=== PATIENT | male | born 2000 | race Hispanic/Latino ===

== ENCOUNTER 2018-10-01 14:09 | Inpatient (IN) | payer BC ==
[2018-10-01 14:42] LABS: #Basophils 0.1 thou/uL (0.0-0.2); #Eosinphils 0.1 thou/uL (0.0-0.7); #Lymphocytes 2.5 thou/uL (1.20-3.40); #Monocytes 1.3 thou/uL (0.11-0.59); #Neutrophils 15.3 thou/uL (1.40-6.50); %Basophils 0.3 % (0.0-1.0); %Eosinophils 0.4 % (0.0-10.0); %Lymphocytes 13.1 % (28.0-48.0); %Monocytes 6.6 % (0.0-4.0); %Neutrophils 79.7 % (31.0-61.0); Hemoglobin 15.9 g/dL (14.0-18.0); Mean Corpuscular HGB CONC 33.5 g/dL (32.0-36.0); Mean Corpuscular Hemoglobin 31.2 pg (25.0-35.0); Mean Corpuscular Volume 93.2 fL (78.0-98.0); Mean Platelet Volume 7.5 fL (7.4-10.4); Platelet Count 305 thou/uL (130-400); RBC Distribution Width 12.2 % (11.5-14.5); White Blood Cell (WBC) Count 19.2 thou/uL (4.8-10.8)
[2018-10-01 15:06] LABS: ALT (SGPT) 25 U/L (8-55); AST (SGOT) 26 U/L (5-34); Albumin 4.9 g/dL (3.5-5.0); Alkaline Phosphatase 101 U/L (Less than 750); Anion Gap 12 mmol/L (10-20); BUN (Urea Nitrogen) 12 mg/dL (8.9-20.6); Bilirubin, Total 0.9 mg/dL (0.2-1.2); Calc. Creatinine Clearance 0 mL/min (70-130); Calcium 10.3 mg/dL (7.8-10.44); Carbon Dioxide 30 mmol/L (22-29); Chloride 102 mmol/L (98-107); Estimated GFR-MDRD 80; Globulin 2.9 g/dL (2.4-3.5); Glucose 92 mg/dL (70-105); Lipase 4 U/L (8-78); Protein, Total 7.8 g/dL (6.0-8.3); Sodium 139 mmol/L (136-145)
[2018-10-01] MEDS ORDERED: ISOVUE-370 76%-LOCM 1 ML ONE (15:08)
[2018-10-01] MEDS ORDERED: Iopamidol 370 76% 50 ML VIAL FS ONE (15:08)
--- NOTE | 2018-10-01 16:36 | CT ---
EXAM: Abdomen and pelvic CT scan with contrast: HISTORY: Abdominal pain COMPARISON: None FINDINGS: The visualized lung bases are clear. Liver: Unremarkable. Gallbladder:Unremarkable. Pancreas:Unremarkable Spleen:Unremarkable. Adrenal glands:Unremarkable. Kidneys:No renal calculus or acute obstruction.No solid or cystic mass. No evidence for bowel obstruction. There is an abnormally thickened appendix with periappendiceal fat stranding and thickening of the ce lance apex evidence for acute appendicitis without evidence for drainable abscess or extraluminal gas. There are some minimally enlarged right lower quadrant mesenteric lymph nodes. The urinary bladder is unremarkable. No abscess, adenopathy, or abnormal fluid collection within the abdomen or pelvis. IMPRESSION: Evidence for acute appendicitis. Findings discussed with Dr. Stockton in the emergency room at 4:30 PM CODE CR
[2018-10-01] MEDS ORDERED: Succinylcholine Chloride 20 MG/ML 10 ml SYRINGE FS ONE (17:03)
[2018-10-01] MEDS ORDERED: Lidocaine 1% PF 5 ML VIAL ONE (17:03)
[2018-10-01] MEDS ORDERED: Ondansetron PF 4 MG/2 ML Vial ONE (17:03)
[2018-10-01] MEDS ORDERED: Ketorolac Tromethamine 30 MG/ML VIAL ONE (17:03)
[2018-10-01] MEDS ORDERED: Rocuronium Bromide 10 MG/ML (10ML VIAL) ONE (17:03)
[2018-10-01] MEDS ORDERED: PROPOFOL 200 MG/20 ML VIAL ONE (17:03)
[2018-10-01] MEDS ORDERED: Glycopyrrolate 0.2 MG/ML 5 ML SYRINGE ONE (17:03)
--- NOTE | 2018-10-01 18:25 | HP ---
CHIEF COMPLAINT: Right lower quadrant abdominal pain. HISTORY OF PRESENT ILLNESS: This is a 18-year-old male with an 18-hour history of right lower quadrant pain associated with no fever, no nausea or vomiting. PAST MEDICAL HISTORY: Otherwise, unremarkable. PAST SURGICAL HISTORY: None. ALLERGIES: NO KNOWN DRUG ALLERGIES. MEDICATIONS: No medications. SOCIAL HISTORY: He is a student in [employer]. No tobacco or alcohol. FAMILY HISTORY: Hypertension. PHYSICAL EXAMINATION: VITAL SIGNS: Afebrile. He is in no apparent distress. HEENT: Unremarkable. LUNGS: Clear. HEART: Regular rate and rhythm. ABDOMEN: Obese, soft, and tender to percussion in the right lower quadrant. EXTREMITIES: Unremarkable. IMAGING: His CT scan shows acute appendicitis. ASSESSMENT: Acute appendicitis. PLAN: Laparoscopic appendectomy. CONSENT: I have discussed planned procedure as well as risk of bleeding, infection, injury to bowel, bladder, need to open. He understands and gives informed consent. Job ID: [id number]
[2018-10-01] MEDS ORDERED: Piperacillin/Tazobactam 3.375 GM VIAL ONE (18:30)
[2018-10-01 19:17] LABS: Bilirubin Negative (Negative); Blood, Urine Negative (Negative); Clarity CLEAR (Clear); Glucose, Urine (Dipstick) Negative (Negative); Leukocyte Negative (Negative); Nitrite Negative (Negative); Protein, Urine (Dipstick) Negative (Neg-Trace); Specific Gravity, Urine 1.038 (1.002-1.036); Urobilinogen 0.2 mg/dL (0.2-1.0)
[2018-10-01] MEDS ORDERED: Morphine 2 MG/ML SYRINGE SLOW IVP PRN (20:19)
[2018-10-01] MEDS ORDERED: Ondansetron PF 4 MG/2 ML Vial SLOW IVP PRN (20:19)
[2018-10-01] MEDS: Sodium Chloride 0.9% 1,000 ML IV SCH (21:01)
[2018-10-01 22:49] VITALS: BMI 34.2
[2018-10-01] MEDS ORDERED: Bupivacaine/Epinephrine 0.25% 30 ML VIAL ONE (23:00)
[2018-10-01] MEDS ORDERED: Fentanyl 100 MCG/2 ML VIAL ONE (23:17)
[2018-10-01] MEDS ORDERED: Midazolam HCl 2 mg/2 ml Vial ONE (23:17)
[2018-10-01] MEDS ORDERED: Ondansetron HCl/PF 4 MG/2 ML Vial IVP PRN ×2 (23:54→23:55)
[2018-10-01] MEDS ORDERED: Promethazine HCl 25 MG/ML VIAL IM PRN ×2 (23:54→23:55)
[2018-10-01] MEDS ORDERED: Promethazine HCl 25 MG/ML VIAL SLOW IVP PRN ×2 (23:54→23:55)
[2018-10-01] MEDS ORDERED: SUGAMMADEX SODIUM 200 MG/2 ML VIAL ONE (23:57)
[2018-10-02] MEDS ORDERED: Morphine 4 MG/ML VIAL SLOW IVP PRN (00:05)
[2018-10-02] MEDS ORDERED: Ondansetron PF 4 MG/2 ML Vial IVP PRN (00:05)
[2018-10-02] MEDS ORDERED: Dextrose 5% in Water 1,000 ML IV PRN (00:05)
[2018-10-02] MEDS ORDERED: Promethazine HCl 25 MG/ML VIAL IM PRN (00:05)
[2018-10-02] MEDS ORDERED: Dextrose 50% Abboject 50 ML SYRINGE SLOW IVP PRN (00:05)
[2018-10-02] MEDS ORDERED: HYDROcodone/Acetaminophen 10/325 mg Tablet PO PRN ×2 (00:05)
[2018-10-02] MEDS ORDERED: Morphine 2 MG/ML SYRINGE SLOW IVP PRN (00:05)
[2018-10-02] MEDS ORDERED: hydrALAZINE 20 MG/ML VIAL SLOW IVP PRN (00:05)
[2018-10-02] MEDS: D5 1/2 NS w/20 mEq KCL 1,000 ML IV SCH ×2 (01:11→10:23)
[2018-10-02] MEDS: Piperacillin/Tazobactam 3.375 GM in Sodium Chloride 0.9% 100 ML IVPB SCH ×2 (01:11→08:25)
[2018-10-02] MEDS: Sodium Chloride 0.9% 1,000 ML IV SCH ×2 (01:27→08:29)
[2018-10-02] MEDS ORDERED: Ketorolac Tromethamine 30 MG/ML VIAL IVP SCH (06:00)
[2018-10-02 06:03] LABS: #Basophils 0.1 thou/uL (0.0-0.2); #Eosinphils 0.1 thou/uL (0.0-0.7); #Lymphocytes 2.8 thou/uL (1.20-3.40); #Monocytes 1.1 thou/uL (0.11-0.59); #Neutrophils 10.7 thou/uL (1.40-6.50); %Basophils 0.4 % (0.0-1.0); %Eosinophils 0.4 % (0.0-10.0); %Lymphocytes 18.9 % (28.0-48.0); %Monocytes 7.4 % (0.0-4.0); %Neutrophils 72.9 % (31.0-61.0); Hemoglobin 13.9 g/dL (14.0-18.0); Mean Corpuscular HGB CONC 33.6 g/dL (32.0-36.0); Mean Corpuscular Hemoglobin 31.9 pg (25.0-35.0); Mean Corpuscular Volume 94.8 fL (78.0-98.0); Mean Platelet Volume 7.7 fL (7.4-10.4); Platelet Count 265 thou/uL (130-400); RBC Distribution Width 12.3 % (11.5-14.5); Red Blood Cell (RBC) Count 4.35 mill/uL (4.00-5.20); White Blood Cell (WBC) Count 14.6 thou/uL (4.8-10.8)
[2018-10-02 06:30] LABS: Anion Gap 11 mmol/L (10-20); BUN (Urea Nitrogen) 10 mg/dL (8.9-20.6); Calc. Creatinine Clearance 119 mL/min (70-130); Calcium 8.7 mg/dL (7.8-10.44); Carbon Dioxide 24 mmol/L (22-29); Chloride 106 mmol/L (98-107); Estimated GFR-MDRD 78; Glucose 118 mg/dL (70-105); Potassium 4.4 mmol/L (3.5-5.1); Sodium 137 mmol/L (136-145)
[2018-10-02] MEDS ORDERED: Enoxaparin Sodium 40 MG/0.4 ML SYRINGE SC SCH (09:00)
[2018-10-02] MEDS ORDERED: Famotidine/PF 20 mg/2ml Vial SLOW IVP SCH (09:00)
[2018-10-02] MEDS ORDERED: Famotidine 20 MG TAB PO SCH (09:00)
[2018-10-02 12:21] VITALS: BP 123/81; TEMP 98.3
--- NOTE | 2018-10-02 16:04 | DIS ---
DATE OF ADMISSION: 10/01/2018 DATE OF DISCHARGE: 10/02/2018 DISCHARGE DIAGNOSIS: Acute appendicitis. PROCEDURES DURING ADMISSION: Laparoscopic appendectomy. HOSPITAL COURSE: The patient was admitted, taken to the operating room, where he underwent a laparoscopic appendectomy. Postoperatively, he has done well. He is tolerating diet. His pain is controlled on p.o. medications. He is discharged home on hydrocodone and Zofran and follow up with me in 2 weeks. Job ID: [id number]
--- NOTE | 2018-10-03 21:47 | OP ---
DATE OF PROCEDURE: 10/01/2018 PREOPERATIVE DIAGNOSIS: Acute appendicitis. PROCEDURE PERFORMED: Laparoscopic appendectomy. INDICATIONS: A 18-year-old male with 18-hour history of right lower quadrant pain. CT scan showed appendicitis. FINDINGS: Acute suppurative nonperforated appendicitis. DESCRIPTION OF PROCEDURE: After informed consent was obtained, the patient was taken to the operating room, given general endotracheal anesthesia, placed in supine position. Abdomen was prepped and draped in usual fashion. Local anesthesia was infiltrated subcutaneously and deep. A subumbilical incision was performed. Subcu divided sharply. The fascia was grasped with 2 stay sutures of 0 Vicryl placed in each side of midline. Midline incised. Digital palpation revealed no local adhesions. A blunt 12 mm trocar was inserted. Pneumoperitoneum was created to a pressure of 15 mmHg. A 0-degree laparoscope was inserted under direct vision. Two 5 mm ports were placed, one suprapubic and one right lateral abdomen. The appendix grasped. The mesoappendix divided with LigaSure. The base of the appendix divided with the linear 45 mm white load stapler. The appendix was placed in the endosac, removed from the abdomen through the endosac. Hemostasis assured. Abdomen irrigated. Irrigation fluid removed. Fascia was closed with interrupted 0 Vicryl suture. The skin was closed with interrupted 4-0 Rapide. Dermabond applied. The patient tolerated the procedure well, transferred to Recovery in good condition. Sponge and needle count verified correct x2. Job ID: [id number]
== END 2018-10-02 11:58 | disposition home or self-care (01) | DRG 343 ==
LOC: ERS 14:09 → SURG A 17:40
PROVIDERS: ADMIT Surgery; ATTEND Surgery
PROC: 0DTJ4ZZ Resection of Appendix, Percutaneous Endoscopic Approach (ICD-10-PCS; principal; 2018-10-01)
DX: K35.80 Unspecified acute appendicitis (principal)
CPT/HCPCS: 36415; 74177; 80048; 80053; 81003; 83690; 85025; 88304; 96361; 96365; J1650; J1885; J2001; J2250; J2270; J2405; J2543; J2704; J3010; J3490; Q9966; Q9967